=== PATIENT | female | born 1995 | race Caucasian/White ===

== ENCOUNTER 2022-08-02 22:16 | Outpatient (CLI) | payer MEDICAID, SELFPAY ==
[2022-08-02] VITALS (8 sets, daily range): BP systolic 102–127; BP diastolic 60–83; PULSE 77–93; RESP 16; TEMP 36.2; BMI 30.2
[2022-08-02 23:44] LABS: Urine Appearance Clear (CLEAR); Urine Color Yellow (Yellow)
[2022-08-02 23:45] LABS: Add Urine Culture? No; Amorphous Sediment Urine 2+ /hpf; Bilirubin Urine Neg (Negative); Blood Urine Neg (Negative); Glucose Urine UA Norm (Normal); Ketones Urine Negative (Negative); Leukocyte Esterase Urine Negative (Negative); Nitrate Urine Negative (Negative); Protein Urine Neg (Negative); Sulfosalicylic Acid Urine Negative (Negative); Urobilinogen Urine Norm (Negative); WBC Urine 0-4 /hpf (0-5); pH Urine 8 (5-7)
[2022-08-03] VITALS: BP 110/68; PULSE 86; RESP 16; TEMP 36.2
== END 2022-08-03 00:05 | disposition home or self-care (01) ==
LOC: OPOB 22:18 → OBGYN 22:19
PROVIDERS: PCP Obstetrics & Gynecology; Visit Provider Obstetrics & Gynecology
DX: O26.899 Other specified pregnancy related conditions, unspecified trimester (principal); Z3A.00 Weeks of gestation of pregnancy not specified; R52 Pain, unspecified
CPT/HCPCS: 59025; 81001; 99211

== ENCOUNTER 2022-09-28 21:40 | Outpatient (CLI) | payer MEDICAID, SELFPAY ==
[2022-09-28 21:40] VITALS: BMI 31.1
[2022-09-28 21:54] VITALS: BP 105/67; PULSE 95
[2022-09-29 00:13] VITALS: BP 105/67; PULSE 95; RESP 16; TEMP 36.8
--- NOTE | 2022-09-29 00:22 | PM.OBTRLD ---
OB L&D Triage Visit Information: Date of evaluation: 09/29/22 Comments/Additional reason(s) for visit: 27yo female at 37wk IUP c/o contractions, onset this am. Pt denies LOF or vaginal bleeding. Pt denies problems during this other than nausea. After almost 3 hrs of OBS and PO hydration pt contractions have almost totally subside and she ranks her discomfort as maybe a 2/10. Cervix soft, 1cm/50%/-3 . EFM- Cat 1. Evaluation: Baseline heart rate: 140 Variability: Moderate (11-25) monitor accelerations: Present 15x15 Cervical dilation (cm): 1 Cervical effacement (%): 50 station: -4 Vital signs: Vital Signs - 24 hr 09/28/22 21:54 09/29/22 00:13 Temperature 98.2 F Pulse Rate 95 95 Respiratory Rate 16 Blood Pressure 105/67 105/67 Final Diagnosis Final Diagnosis (1) Moderate persistent asthma: Plan: A. 37wk IUP with irreg contraction P. OBS on LF with EFM DC to home, to return if contractions return q 2-5 , LOF or vaginal bleeding or decreased FM. Keep apptmt. Stop smoking. Status: Acute Code(s): J45.40 - Moderate persistent asthma, uncomplicated Coding Level of Care Code Acute Code for Chg Fwd Diagnoses Moderate persistent asthma J45.40
== END 2022-09-29 00:10 | disposition home or self-care (01) ==
LOC: OBGYN 09-29 00:13 → OPOB 09-29 07:58 → OBGYN 09-29 08:06
PROVIDERS: PCP Obstetrics & Gynecology; Visit Provider Obstetrics & Gynecology
DX: O47.1 False labor at or after 37 completed weeks of gestation (principal); Z3A.37 37 weeks gestation of pregnancy
CPT/HCPCS: 12345; 59025; 99211; G0378; G0379

== ENCOUNTER 2022-11-28 16:15 | Inpatient (IN) | payer MEDICAID, SELFPAY ==
[2022-11-28] VITALS (26 sets, daily range): BP systolic 100–156; BP diastolic 65–91; PULSE 67–106; TEMP 36.9; O2SAT 92–99; BMI 34.3
[2022-11-28 14:49] LABS: Basophils % 0.3 %; Eosinophils # 0.1 10^3/uL (0.0-0.8); Eosinophils % 0.5 %; Hematocrit 40.6 % (37.0-47.0); Hemoglobin 13.2 g/dL (11.5-15.3); Lymphocytes # 2.1 10^3/uL (0.8-4.8); Lymphocytes % 17.4 %; Mean Corpuscular HGB Conc 32.5 g/dL (30.0-36.0); Mean Corpuscular Hemoglobin 27.4 pg (28.0-34.0); Mean Corpuscular Volume 84.2 fl (81-99); Mean Platelet Volume 10.7 fL (7.4-10.4); Monocytes # 0.6 10^3/uL (0.2-0.9); Monocytes % 4.6 %; Neutrophils # 9.23 10^3/uL (1.8-7.7); Neutrophils % 76.7 %; Nucleated Red Blood Cells % 0 %; Platelet Count 222 10^3/cmm (130-400); Red Blood Count 4.82 10^6/uL (4.1-5.3); Red Cell Distribution Width 14.7 % (12.1-15.1)
[2022-11-28] MEDS: lactated ringers 1,000 ML 999 ML IV (14:50)
[2022-11-28 15:55] LABS: Amphetamines Screen Urine Negative (Negative); Barbiturates Screen Urine Negative (Negative); Benzodiazepines Screen Urine Negative (Negative); Cocaine Screen Urine Negative (Negative); Opiate Screen Urine Negative (Negative); PCP Screen Urine Negative (Negative); THC Screen Urine Positive (Negative)
--- NOTE | 2022-11-28 16:12 | ANES.PREANE2 ---
Pre-Anesthetic Assessment Height/Weight: Height 1.83 m Pulse BP Pulse Ox 67 139/71 99 11/28/22 16:02 11/28/22 16:02 11/28/22 15:54 Epidural Familial anesthetic complications: None Was Beta Merlin taken within 24 hours: N/A Was Clonidine taken within 24 hours: N/A Social No alcohol and No tobacco Exam alert, oriented x 3, clear to auscultation bilaterally and regular rate & rhythm Airway Mallampati: Class II Dentition: full Pulmonary Asthma Anesthetic Plan ASA status: 2 Anesthesia: Regional (specify below) Risk of > 500 ml blood loss (7ml/kg in children): Yes, adequate IV access and fluids planned Medications/Allergies Home Medications Medication Instructions Recorded Confirmed Last Taken Type albuterol sulfate 90 mcg/actuation 2 puff inhalation QID PRN 06/21/22 09/29/22 Unknown Rx aerosol inhaler shortness of breath or wheezing #8.5 grams mometasone-formoterol HFA 200 2 puff inhalation BID 06/21/22 09/29/22 Unknown History mcg-5 mcg/actuation aerosol inhaler (Dulera) montelukast 10 mg tablet 10 mg PO DAILY #90 tabs 06/21/22 09/29/22 Unknown Rx Allergies Allergy/AdvReac Type Severity Reaction Status Date / Time penicillin G Allergy Mild ALGY-Rash Verified 06/21/22 11:14 Current Medications Generic Name Dose Route Start Last Admin Trade Name Freq PRN Reason Stop Dose Admin Lactated Ringer's 1,000 mls @ 999 mls/hr 11/28/22 14:18 11/28/22 14:50 Lactated Ringers IV 999 mls/hr .Q1H1M PRN Administration See label comments PFSH Anesthesia Family History (Updated 06/21/22 @ 11:07 by Angelina Mack LPN) Father Diabetes Mother Hypertension Social History (Updated 06/21/22 @ 11:08 by Angelina Mack LPN) Smoking and tobacco status: never smoked Second hand smoke exposure: No Smoking risk assessment/counseling performed?: No Alcohol intake: never Substance/Drug Use: never Adopted: No Caregiver/support person: No Lives independently: No Household members: family Marital status: Legally Number of children: 1 Female Reproductive History Para: 1 Spontaneous abortions: No Data Anesthesia 05/16/23 14:28 Short CBC 11/28/22 Range/Units 14:28 WBC 12.0 H (4.0-10.0) 10^3/uL Hgb 13.2 (11.5-15.3) g/dL Hct 40.6 (37.0-47.0) % MCV 84.2 (81-99) fl Plt Count 222 (130-400) 10^3/cmm Neut % (Auto) 76.7 % Neut # (Auto) 9.23 H (1.8-7.7) 10^3/uL Blood Bank 11/28/22 14:28 Blood Type A Positive Rho(D) Type Positive Cardiac Studies: No Data to Display
--- NOTE | 2022-11-28 16:12 | ANES.PROC ---
Anesthesia Procedures Procedure/Date: 11/28/22 Epidural: Time Out Performed: Yes Consents Signed: Procedure Consent Consent: requested by attending/covering physician, from patient, from other, risks and benefits reviewed and patient agrees to proceed Lumbar Level: L3-L4 Epidural position: sitting Epidural procedure: sterile prep of area, 1% lidocaine to numb the area, 18 g needle, negative for paresthesia passed, neg for paresthesia, test dose given, 1.5% xylocaine 1:200k epi (5), 0.2% Ropivacaine bolus ml (5), placed PCEA, no systemic response, sterile dressing applied, L.U.D. no apparent complications and 0.2% Ropiavacaine @ mls/hr (13) Additional Comments: VENUS at 6 cm, threaded to 12 cm. Patient reported pain of contraction decreased from 9/10 to 7/10 the 10. Encouraged continued use of bolus button to help initiate set up of block
--- NOTE | 2022-11-28 17:21 | PM.OBGYHP ---
Providers/Chief Complaint Admitting Physician: Magda Gaxiola DO Primary SAFETY TECH: Dr. Vazquez in [place] Primary Care Provider: Mandeep Brewer DO Chief Complaint: contractions HPI SAFETY TECH History of Present Illness Carrie Castrejon is a 27 year old female presenting for contractions. PMHx significant for asthma per patient. Denies complications in this . Reports she was scheduled for induction tomorrow in [place]. Complains of contractions starting this morning intermittently and then became more intense and began en route to hospital. Reports good care with Dr. Vazquez in [place]- records not available at this time. Medications/Allergies Home Medications Medication Instructions Recorded Confirmed Last Taken Type albuterol sulfate 90 mcg/actuation 2 puff inhalation QID PRN 06/21/22 09/29/22 Unknown Rx aerosol inhaler shortness of breath or wheezing #8.5 grams mometasone-formoterol HFA 200 2 puff inhalation BID 06/21/22 09/29/22 Unknown History mcg-5 mcg/actuation aerosol inhaler (Dulera) montelukast 10 mg tablet 10 mg PO DAILY #90 tabs 06/21/22 09/29/22 Unknown Rx Allergies Allergy/AdvReac Type Severity Reaction Status Date / Time penicillin G Allergy Mild ALGY-Rash Verified 06/21/22 11:14 PFSH SAFETY TECH PFSH: Family History (Updated 06/21/22 @ 11:07 by Angelina Mack LPN) Father Diabetes Mother Hypertension Social History (Updated 06/21/22 @ 11:08 by Angelina Mack LPN) Smoking and tobacco status: never smoked Second hand smoke exposure: No Smoking risk assessment/counseling performed?: No Alcohol intake: never Substance/Drug Use: never Adopted: No Caregiver/support person: No Lives independently: No Household members: family Marital status: Legally Number of children: 1 Personal Safety: Do you feel safe at home: Yes Victim of physical abuse: No Victim of emotional abuse: No Victim of sexual abuse: No Would you like help information on resources?: No History History History 4 Term 1 0 Miscarriages/Ectopic Living Children 1 Vitals/I&O/Wt Last Vital Signs Pulse 106 H 11/28/22 16:35 BP 138/79 11/28/22 16:35 Pulse Ox 99 11/28/22 15:54 Physical Exam Const: COMMON NORMALS: healthy appearing, alert and well nourished OTHER: discomfort with contractions Resp: COMMON NORMALS: normal respiratory effort Extremity: NARRATIVE EXTREMITY EXAM: No LE edema Psych: COMMON NORMALS: mental status grossly normal, Normal thought process present and speech normal Data 11/28/22 14:28 A&P Assessment and plan (1) Spontaneous onset of labor: Admit for labor. Request records. Routine CBC, UDS. May have epidural. Anticipate , expectant management. (2) Term : Attestations Medical Necessity Statement*: Carrie Soto Lucía's hospital stay will require greater than 2 midnights for routine labor and delivery and care Coding Level of Care Code Acute Code for Chg Fwd Diagnoses Spontaneous onset of labor Term Z34.90
--- NOTE | 2022-11-28 17:21 | PM.DELIVERY ---
Delivery Note: Date of delivery: November 28, 2022 Pre-delivery diagnoses: Term Post-delivery diagnoses: Delivery of viable female Procedure: Spontaneous Vaginal Delivery Delivering Physician: Magda Gaxiola DO Estimated blood loss (mL): 175 Pre-Delivery Course: Admitted in spontaneous labor at 40w1d. Progressed appropriately with epidural anesthesia to complete. SROM after progression to complete with thick meconium noted. Delivery: Patient progressed to complete. Patient placed in lithotomy position. Patient pushed with adequate effort. Head delivered in FRANCESCA position, tight nuchal cord was present x1- reduced without difficulty. Shoulders and rest of body delivered without difficulty with epidural anesthesia. Mouth and nares bulb suctioned. placed on maternal abdomen. Cord clamped and cut after 1 minute delay. Placenta spontaneously delivered intact. Pitocin started. Fundus was noted to be moderately firm- improved with fundal massage. The vagina and cervix were inspected and no lacerations were noted. Intermittent trickle bleed noted- uterus swept clear of clots and few pieces of retained membrane noted. Following noted to be with minimal bleeding and fundus was again noted to be firm. Female born at 1653 with 7/8 weighing 3690g and measuring 20.75 inches in length Placenta noted to be intact with centrally inserted umbilical cord and 3-vessel cord Complications: Maternal none Infant none History History History 4 Term 1 0 Miscarriages/Ectopic Living Children 1 Coding Level of Care Code Acute Code for Chg Fwd Diagnoses
[2022-11-28] MEDS: ibuprofen 800 mg tablet PO (22:08)
[2022-11-28] MEDS: docusate sodium 100 mg Capsule PO (22:08)
[2022-11-28] MEDS: benzocaine-menthol 78 gm Canister 1 SPRAY TOPICAL (22:14)
[2022-11-29 01:00] VITALS: BP 131/74; PULSE 73; TEMP 36.8; O2SAT 97
[2022-11-29 04:00] VITALS: BP 113/61; PULSE 67; RESP 16; TEMP 36.4; O2SAT 98
[2022-11-29 06:18] LABS: Hematocrit 32.6 % (37.0-47.0); Mean Corpuscular HGB Conc 30.7 g/dL (30.0-36.0); Mean Corpuscular Hemoglobin 27.9 pg (28.0-34.0); Mean Corpuscular Volume 90.8 fl (81-99); Mean Platelet Volume 11.2 fL (7.4-10.4); Platelet Count 166 10^3/cmm (130-400); Red Blood Count 3.59 10^6/uL (4.1-5.3); Red Cell Distribution Width 14.7 % (12.1-15.1); White Blood Count 12.1 10^3/uL (4.0-10.0)
[2022-11-29] MEDS: prenatal vitamin Capsule 1 CAP PO (09:21)
[2022-11-29] MEDS: ibuprofen 800 mg tablet PO ×3 (09:21→21:10)
[2022-11-29] MEDS: docusate sodium 100 mg Capsule PO (09:21)
[2022-11-29 09:26] VITALS: BP 136/89; PULSE 75; RESP 17; O2SAT 97
--- NOTE | 2022-11-29 11:11 | PM.OBGYPN ---
DIRECTOR OF FLIGHT OPERATIONS Subjective Subjective: Interval history: Doing well overnight. Denies pain. Eating and drinking without nausea/vomiting. Bleeding is decreasing and amount of a period- no clots. Ambulating without difficulty. Urinating without difficulty and passing gas. Baby is formula feeding. records not yet available for review however primary OB office has been contacted and states they have records and labs. Patient again reports normal without abnormal lab results and GBS negative status. Reports she plans for tubal ligation in 6 weeks with her primary OB and plans to follow-up with her primary OB office. Called by nursing at approx 11am and noted GBS status only had been received by record and GBS is positive per report. Labor: Station: 0 Amniotic Membrane Status: Ruptured Monitor Mode: External Contraction Pattern: Regular Status: Category II Vitals/I&O/Wt Last Vital Signs Temp 97.5 F L 11/29/22 04:00 Pulse 67 11/29/22 04:00 Resp 16 11/29/22 04:00 BP 113/61 11/29/22 04:00 Pulse Ox 98 11/29/22 04:00 O2 Del Method Room Air 11/29/22 04:00 11/28/22 11/29/22 11/29/22 22:59 06:59 14:59 Output Total 600 / 600 Balance -600 / -600 Weight last 48 hrs Weight 253 lb Physical Exam Const: COMMON NORMALS: healthy appearing, alert and well nourished Resp: COMMON NORMALS: normal respiratory effort and clear to auscultation bilaterally AUSCULTATION: clear to auscultation bilaterally Cardio: COMMON NORMALS: regular rate, regular rhythm, S1 normal heart sound present, S2 normal heart sound present and No murmurs present (Cardio) RATE: regular rate RHYTHM: regular rhythm HEART SOUNDS: S1 normal heart sound present and S2 normal heart sound present : OTHER: Uterine fundus firm and at the umbilicus Extremity: NARRATIVE EXTREMITY EXAM: No LE edema, no calf tenderness Neuro: SENSORIUM/ORIENTATION: Yes alert Psych: COMMON NORMALS: mental status grossly normal, Normal thought process present and speech normal SPEECH: Yes normal speech THOUGHT PROCESS: Normal thought process present Data 11/29/22 05:30 A&P Assessment and plan (1) Spontaneous vaginal delivery: PPD#1 s/p without complication Routine care. Encourage ambulation, may shower, regular diet. Review remainder of labs when received- normal per patient. Anticipate discharge home tomorrow. (2) Anemia: Start daily iron supplementation. (3) Positive GBS test: GBS unknown at delivery with patient report of GBS negative. Records received after delivery with GBS positive report. Did not receive GBS ppx. Attestations Medical Necessity Statement*: Carrie Castrejon's hospital stay will require greater than 2 midnights for routine labor and delivery and care Coding Level of Care Code Acute Code for Chg Fwd Diagnoses Spontaneous vaginal delivery O80 Anemia D64.9 Positive GBS test B95.1
[2022-11-29 16:00] VITALS: BP 134/84; PULSE 62; TEMP 36.4; O2SAT 100
[2022-11-29 21:09] VITALS: BP 123/82; PULSE 70; RESP 18; TEMP 37; O2SAT 99
[2022-11-30 04:54] VITALS: BP 127/86; PULSE 70; RESP 18; TEMP 36.6; O2SAT 97
[2022-11-30 07:45] VITALS: BP 116/74; PULSE 80; RESP 18; TEMP 36.7
--- NOTE | 2022-11-30 08:00 | ANE.PACU2 ---
Inpatient post-anesthesia follow up: Airway intact: Yes Vital signs: Temperature 98.1 F Pulse Rate 81 Respiratory Rate 18 Blood Pressure 128/83 Pulse Oximetry 97 Oxygen Delivery Me thod Room Air Oxygen Flow Rate Fraction of Inspir ed Oxygen Hydration adequate: Yes Nausea and vomiting: No Pain level: 1 Mental status: Baseline
--- NOTE | 2022-11-30 08:05 | PM.OBGYDC ---
Discharge Providers RETAIL ACCOUNT MANAGER Date of Admission: 11/28/22 16:15 Date of Discharge: 11/30/22 Attending Provider at Admission: Magda Gaxiola DO Attending Provider at Discharge: Magda Gaxiola DO Primary Care Provider: Mandeep Brewer DO Diagnoses at Discharge Discharge Diagnosis (1) Spontaneous vaginal delivery: Status: Acute (2) Anemia: Status: Acute (3) Positive GBS test: Status: Inactive Reason for Visit Reason for Visit: contractions Hospital Course Hospital Course Pre-Delivery Course:?? Admitted in spontaneous labor at 40w1d. Progressed appropriately with epidural anesthesia to complete. SROM after progression to complete with thick meconium noted. Delivery:?? Patient progressed to complete. Patient placed in lithotomy position. Patient pushed with adequate effort. Head delivered in FRANCESCA position, tight nuchal cord was present x1- reduced without difficulty. Shoulders and rest of body delivered without difficulty with epidural anesthesia. Mouth and nares bulb suctioned. placed on maternal abdomen. Cord clamped and cut after 1 minute delay. Placenta spontaneously delivered intact. Pitocin started. Fundus was noted to be moderately firm- improved with fundal massage. The vagina and cervix were inspected and no lacerations were noted. Intermittent trickle bleed noted- uterus swept clear of clots and few pieces of retained membrane noted. Following noted to be with minimal bleeding and fundus was again noted to be firm. Female born at 1653 with 7/8 weighing 3690g and measuring 20.75 inches in length Placenta noted to be intact with centrally inserted umbilical cord and 3-vessel cord Complications: Maternal none ? Infant none Patient underwent on 11/28/22. course was uncomplicated. Following delivery patient ambulated well, tolerated a normal diet without nausea or vomiting. Pain was well controlled on PO medications, bottle feeding formula, no leg/calf pain, no calf/leg swelling, normal urination, passing gas and normal bowel movements. Vaginal bleeding decreasing and thin lochia. labs significant for hemoglobin 10.0 from 13.2 on admission. Started on iron supplementation- discussed she may take every other day at home. control was discussed and patient prefers tubal ligation- she is to schedule with her primary OB on follow-up. Follow-up planned for 6 weeks with her primary OB- Dr. Ruggiero in [place]- patient to call for follow-up. Warning signs for endometritis, pre-eclampsia, DVT/PE, mastitis were reviewed, discussed additional warning signs including increased vaginal bleeding, worsening abdominal pain. Pelvic rest and activity precautions reviewed as well. She is discharged on 11/30/22 in stable condition. Information Peripartum Data: Infant Delivery Method: Vaginal Physical Exam Const: COMMON NORMALS: healthy appearing, alert and well nourished Resp: COMMON NORMALS: normal respiratory effort and clear to auscultation bilaterally AUSCULTATION: clear to auscultation bilaterally Cardio: COMMON NORMALS: regular rate, regular rhythm, S1 normal heart sound present, S2 normal heart sound present and No murmurs present (Cardio) RATE: regular rate RHYTHM: regular rhythm HEART SOUNDS: S1 normal heart sound present and S2 normal heart sound present : OTHER: Uterine fundus firm and at the umbilicus Extremity: NARRATIVE EXTREMITY EXAM: No LE edema, no calf tenderness Neuro: SENSORIUM/ORIENTATION: Yes alert Psych: COMMON NORMALS: mental status grossly normal, Normal thought process present and speech normal SPEECH: Yes normal speech THOUGHT PROCESS: Normal thought process present History History History 4 Term 2 0 Miscarriages/Ectopic Living Children 2 Discharge Data Studies Completed and Pending Laboratory Results WBC 12.1 10^3/uL (4.0-10.0) H 11/29/22 05:30 RBC 3.59 10^6/uL (4.1-5.3) L 11/29/22 05:30 Hgb 10.0 g/dL (11.5-15.3) L 11/29/22 05:30 Hct 32.6 % (37.0-47.0) L 11/29/22 05:30 MCV 90.8 fl (81-99) D 11/29/22 05:30 MCH 27.9 pg (28.0-34.0) L 11/29/22 05:30 MCHC 30.7 g/dL (30.0-36.0) D 11/29/22 05:30 RDW 14.7 % (12.1-15.1) 11/29/22 05:30 Plt Count 166 10^3/cmm (130-400) 11/29/22 05:30 MPV 11.2 fL (7.4-10.4) H 11/29/22 05:30 Neut % (Auto) 76.7 % 11/28/22 14:28 Lymph % (Auto) 17.4 % 11/28/22 14:28 [place] % (Auto) 4.6 % 11/28/22 14:28 Eos % (Auto) 0.5 % 11/28/22 14:28 Baso % (Auto) 0.3 % 11/28/22 14:28 Neut # (Auto) 9.23 10^3/uL (1.8-7.7) H 11/28/22 14:28 Lymph # (Auto) 2.1 10^3/uL (0.8-4.8) 11/28/22 14:28 [place] # (Auto) 0.6 10^3/uL (0.2-0.9) 11/28/22 14: Eos # (Auto) 0.1 10^3/uL (0.0-0.8) 11/28/22 14:28 Baso # (Auto) 0.0 10^3/uL (0.0-0.1) 11/28/22 14: Nucleated RBC % (auto) 0 % 11/28/22 14: Nucleated RBCs # 0.0 /100WBC 11/28/22 14:28 Urine Opiates Screen Negative ng/mL (Negative) 11/28/22 15:27 Ur Barbiturates Screen Negative ng/mL (Negative) 11/28/22 15:27 Ur Phencyclidine Scrn Negative ng/mL (Negative) 11/28/22 15:27 Ur Amphetamines Screen Negative ng/mL (Negative) 11/28/22 15:27 U Benzodiazepines Scrn Negative ng/mL (Negative) 11/28/22 15:27 Urine Cocaine Screen Negative ng/mL (Negative) 11/28/22 15:27 U Marijuana (THC) Screen Positive ng/mL (Negative) H 11/28/22 15:27 Blood Type A Positive 11/28/22 14:28 Rho(D) Type Positive 11/28/22 14:28 Vitals Last Vital Signs Temp 97.8 F 11/30/22 04:54 Pulse 70 11/30/22 04:54 Resp 18 11/30/22 04:54 BP 127/86 11/30/22 04:54 Pulse Ox 97 11/30/22 04:54 O2 Del Method Room Air 11/30/22 04:54 Discharge Plan Discharge Patient Disposition: Home Condition: Stable Prescriptions: New ibuprofen 800 mg Tablet 800 mg PO TID Qty: 90 0RF docusate sodium 100 mg Capsule 100 mg PO BID Qty: 60 0RF ferrous sulfate 325 mg (65 mg iron) Tablet,Delayed Release (Dr/Ec) 325 mg PO EVERY OTHER DAY Qty: 45 0RF -U 106.5-1 mg Capsule 1 cap PO DAILY Qty: 90 0RF Continued Dulera 200-5 mcg/actuation HFA aerosol inhaler 2 puff inhalation BID albuterol sulfate 90 mcg/actuation HFA aerosol inhaler 2 puff inhalation QID PRN (Reason: shortness of breath or wheezing) Qty: 8.5 5RF montelukast 10 mg tablet 10 mg PO DAILY Qty: 90 2RF Discharge Orders: Discharge Order (Routine); Ordered 11/30/22 Ordered By: Magda Gaxiola Referrals: Angela Ruggiero [Referring] - 01/10/23 1:00 pm Discharge Diet: Usual diet Discharge Activity: Increase activity as tolerated Patient Instructions: Depression (DC), Bleeding (DC), Preeclampsia and Eclampsia After Delivery (GEN), Hemorrhage (DC), OB Discharge Report, OB Food/Drug Interaction Guide, OB Care at Home, Opioid Safety, OB Home Care, OB Proud Parent Packet, OB Vaginal Deliveries Activity Restrictions/Additional Instructions: Pelvic rest for 6 weeks. Plan of Treatment: Follow-up with primary OB Dr. Ruggiero in 6 weeks. Discharge Attestations RETAIL ACCOUNT MANAGER Time Spent in Discharge Care*: greater than 30 min Coding Level of Care Code Acute Code for Chg Fwd Diagnoses Spontaneous vaginal delivery O80 Anemia D64.9 Positive GBS test B95.1
[2022-11-30] MEDS: ibuprofen 800 mg tablet PO ×2 (09:27→15:38)
[2022-11-30] MEDS: ferrous sulfate EC 325 mg Tablet PO (09:28)
[2022-11-30] MEDS: prenatal vitamin Capsule 1 CAP PO (09:28)
[2022-11-30] MEDS: docusate sodium 100 mg Capsule PO (09:28)
[2022-11-30 15:40] VITALS: BP 123/79; PULSE 75; RESP 18; TEMP 36.8
[2022-11-30 17:15] VITALS: BP 128/83; PULSE 81; RESP 18; TEMP 36.7
[2022-11-30 17:25] VITALS: BP 128/83; PULSE 81; RESP 18; TEMP 36.7
== END 2022-11-30 17:25 | disposition home or self-care (01) | DRG 807 ==
LOC: OPOB 17:22 → OBGYN 17:22
PROVIDERS: Admitting Provider Family Medicine; PCP Family Medicine; Visit Provider Family Medicine
DX: O48.0 Post-term pregnancy (principal); Z37.0 Single live birth; O99.52 Diseases of the respiratory system complicating childbirth; Z3A.40 40 weeks gestation of pregnancy; J45.909 Unspecified asthma, uncomplicated; O77.0 Labor and delivery complicated by meconium in amniotic fluid; O69.1XX0 Labor and delivery complicated by cord around neck, with compression, not applicable or unspecified; O90.81 Anemia of the puerperium; D64.9 Anemia, unspecified; O99.825 Streptococcus B carrier state complicating the puerperium
CPT/HCPCS: 36415; 59025; 59409; 80306; 85025; 85027; 86900; 99211; J7120

== ENCOUNTER → 2023-08-07 14:06 | Outpatient (BNVA) | payer MEDICAID, SELFPAY | PROVIDERS: PCP Family Medicine; Visit Provider Nurse Practitioner Family | DX: R05.9 Cough, unspecified (principal); J06.9 Acute upper respiratory infection, unspecified | CPT/HCPCS: 87400; 87426 ==

== ENCOUNTER 2023-10-30 13:24 | Emergency (ER) | payer MEDICAID, SELFPAY ==
[2023-10-30] VITALS (27 sets, daily range): BP systolic 102–154; BP diastolic 78–97; PULSE 66–98; RESP 13–33; TEMP 36.8; O2SAT 95–100; BMI 32.5
--- NOTE | 2023-10-30 13:26 | XR_ITS ---
WS: [id number] Exam: XR chest 1V portable [id number] Date/Time of Exam: 10/30/2023 1:37 PM Reason For Exam: palpitations Comparison 03/19/2019. Findings: The lungs are clear and fully expanded. Costophrenic angles are sharp. No infiltrates. Bronchovascula r relief appears normal. Cardiac silhouette is unremarkable. Bony elements are intact. IMPRESSION: Unremarkable chest radiograph.
--- NOTE | 2023-10-30 13:33 | ECG_ITS ---
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 Measurements Intervals [place] Rate: 74 P: 33 MN: 159 QRS: 33 QRSD: 98 T: 31 QT: 376 QTc: 418 Interpretive Statements SINUS RHYTHM No previous ECG available for comparison Electronically Signed On 10-30-2023 17:39:18 CDT by Blair Hooper M.D. [email or web address]
[2023-10-30 14:06] LABS: Basophils # 0.1 10^3/uL (0.0-0.1); Basophils % 0.9 %; Eosinophils # 0.9 10^3/uL (0.0-0.8); Eosinophils % 9.1 %; Hematocrit 41.2 % (36-47); Lymphocytes # 2.8 10^3/uL (0.8-4.8); Lymphocytes % 28.3 %; Mean Corpuscular HGB Conc 33.5 g/dL (30-55); Mean Corpuscular Hemoglobin 27.8 pg (27-33); Mean Corpuscular Volume 82.9 fl (85-98); Mean Platelet Volume 9.9 fL (7.4-10.4); Monocytes # 0.4 10^3/uL (0.2-0.9); Monocytes % 4.2 %; Neutrophils # 5.71 10^3/uL (1.8-7.7); Neutrophils % 57.2 %; Nucleated Red Blood Cells % 0 %; Platelet Count 307 10^3/cmm (157-399); Red Blood Count 4.97 10^6/uL (3.85-5.65); Red Cell Distribution Width 13.2 % (12.1-15.1); White Blood Count 9.99 10^3/uL (3.29-11.43)
[2023-10-30 14:06] LABS: HCG Qualitative Urine. Negative (Negative)
[2023-10-30 14:09] LABS: Amphetamines Screen Urine Negative (Negative); Barbiturates Screen Urine Negative (Negative); Benzodiazepines Screen Urine Negative (Negative); Cocaine Screen Urine Negative (Negative); Opiate Screen Urine Negative (Negative); PCP Screen Urine Negative (Negative); THC Screen Urine Positive (Negative)
[2023-10-30 14:25] LABS: Alanine Aminotransferase 42 U/L (0-33); Alkaline Phosphatase 77 U/L (35-105); Anion Gap 14.9 (5-19); Aspartate Amino Transferase 26 U/L (0-32); Blood Urea Nitrogen 9 mg/dL (6-20); Calcium 8.8 mg/dL (8.5-10.5); Carbon Dioxide 24 mmol/L (22-29); Chloride 104 mmol/L (98-107); Creatinine Clr Calc Pharmacy 196.0538; Globulin 3.2 g/dL (1.3-4.6); Glomerular Filtration Rate 120.8 mL/min (90-130); Glucose 93 mg/dL (65-115); Magnesium 1.9 mg/dL (1.7-2.3); Osmolality Calculated 286 mOsm/kg (285-295); Potassium 3.9 mmol/L (3.5-5.1); Sodium 139 mmol/L (136-145); Total Bilirubin 0.3 mg/dL (0.15-1.2); Total Protein 7.2 g/dL (6.6-8.7); Troponin(5th) Baseline < 6 ng/L (0-10)
[2023-10-30 14:32] LABS: Add Urine Culture? No; Add Urine Microscopic? YES; Amorphous Sediment Urine 2+ /hpf; Bacteria Urine TRACE /hpf; Bilirubin Urine Neg (Negative); Blood Urine Neg (Negative); Glucose Urine UA Norm (Normal); Ketones Urine 1+ (Negative); Leukocyte Esterase Urine 2+ (Negative); Nitrate Urine Negative (Negative); Protein Urine Neg (Negative); RBC Urine RARE /hpf (0-2); Squamous Epithelial Cell Urine 15-25 /hpf (0-5); Urine Appearance Hazy (CLEAR); Urine Color Yellow (Yellow); Urobilinogen Urine Neg (Negative); WBC Urine 0-4 /hpf (0-5); pH Urine 6 (5-7)
--- NOTE | 2023-10-30 14:35 | ED_ITS ---
HPI - Arrhythmia/Palpitations 2 General: Chief Complaint: Arrhythmia/Palpitations Stated Complaint: Fluttery Chest Time Seen by Provider: 10/30/23 13:26 History of Present Illness: Patient presents to the ER with complaint of heart flutters and high blood pressure. Patient states she was sitting at work eating her lunch when she began having chest flutters heart rate got up to about 110 bpm and left arm became tingly. Patient says she has no cardiac history other than high blood pressure but she is not on any medicine for it at this time. Patient does have a history of anxiety but this is been getting better. Patient has no current complaints. Patient denies any nausea vomiting shortness of breath diaphoresis Review of Systems 2 General: Reports: 10 or more systems reviewed and unremarkable except in HPI and below PFSH ED 2 PFSH: Medical History Positive GBS test Family History Father Diabetes Mother Hypertension Social History Smoking and tobacco/nicotine status: never used tobacco/nicotine Second hand smoke exposure: No Alcohol intake: never Substance/Drug Use: never Adopted: No Caregiver/support person: No Lives independently: No Household members: family Marital status: Legally Number of children: 1 Female Reproductive History: Para: 1 Spontaneous abortions: No Physical Exam 2 Const: COMMON NORMALS: no acute distress, average body habitus, patient oriented x3, no limitations, healthy appearing, alert and well nourished HENMT: COMMON NORMALS: normocephalic, atraumatic, hearing grossly normal bilaterally, external ears normal, Normal external nose present, moist oral mucous membranes and oropharynx normal HEAD & SCALP: normocephalic and atraumatic NOSE: Normal external nose present EXTERNAL EAR: Yes external ears normal Neck/C-Spine: COMMON NORMALS: full ROM, no lymphadenopathy, supple, no meningeal signs, no JVD and Thyroid normal THYROID: Thyroid normal Chest: COMMONS NORMALS: normal inspection of the chest and normal palpation of entire chest wall Resp: COMMON NORMALS: normal respiratory effort, No retractions, No use of accessory muscles and clear to auscultation bilaterally AUSCULTATION: clear to auscultation bilaterally Cardio: COMMON NORMALS: no JVD, regular rate, regular rhythm, S1 normal heart sound present, S2 normal heart sound present, No gallops present (Cardio), No clicks present (Cardio), No murmurs present (Cardio) and No rub (Cardio) R ATE: regular rate RHYTHM: regular rhythm HEART SOUNDS: S1 normal heart sound present and S2 normal heart sound present GI: COMMON NORMALS: Normal to inspection, nondistended, normoactive bowel sounds present, Soft to palpation, non-tender, No hepatosplenomegaly present and no masses PALPATION: Yes Soft to palpation and Yes No hepatosplenomegaly present Neuro: COMMON NORMALS: patient oriented x3 SENSORIUM/ORIENTATION: Yes alert MENINGEAL SIGNS: Yes no meningeal signs Course 2 Vital Signs: Vital signs: Vital Signs Temperature 98.2 F 10/30/23 13:25 Pulse Rate 69 10/30/23 16:45 Respiratory Rate 27 H 10/30/23 16:45 Blood Pressure 130/86 10/30/23 16:45 Pulse Oximetry 95 10/30/23 16:45 Oxygen Delivery Me thod Room Air 10/30/23 13:38 MDM - Arrhythmia/Palpitations Medical Decision Making Patient was worked up in a standard cardiac fashion with serial EKGs and lab work, all of it was essentially benign for cardiac causes of palpitations. Patient does have 2+ leukocyte Estrace. Patient be treated for urinary tract infection. Differential Diagnosis Likely palpitations and sinus tachycardia; Unlikely anxiety, artial fibrillation, artial flutter, ventricular premature beats, supraventricular tachycardia, ventricular tachycardia or WPW Medical Records I reviewed the patient's medical records. Lab Data I reviewed the patient's lab results. 10/30/23 13:52 10/30/23 13:52 Laboratory Results WBC 9.99 10^3/uL (3.29-11.43) 10/30/23 13:52 RBC 4.97 10^6/uL (3.85-5.65) 10/30/23 13:52 Hgb 13.80 g/dL (11.27-16.99) 10/30/23 13:52 Hct 41.2 % (36-47) 10/30/23 13:52 MCV 82.9 fl (85-98) L 10/30/23 13:52 MCH 27.8 pg (27-33) 10/30/23 13:52 MCHC 33.5 g/dL (30-55) 10/30/23 13:52 RDW 13.2 % (12.1-15.1) 10/30/23 13:52 Plt Count 307 10^3/cmm (157-399) 10/30/23 13:52 MPV 9.9 fL (7.4-10.4) 10/30/23 13:52 Neut % (Auto) 57.2 % 10/30/23 13:52 Lymph % (Auto) 28.3 % 10/30/23 13:52 [place] % (Auto) 4.2 % 10/30/23 13:52 Eos % (Auto) 9.1 % 10/30/23 13:52 Baso % (Auto) 0.9 % 10/30/23 13:52 Neut # (Auto) 5.71 10^3/uL (1.8-7.7) 10/30/23 13:52 Lymph # (Auto) 2.8 10^3/uL (0.8-4.8) 10/30/23 13:52 [place] # (Auto) 0.4 10^3/uL (0.2-0.9) 10/30/23 13:52 Eos # (Auto) 0.9 10^3/uL (0.0-0.8) H 10/30/23 13:52 Baso # (Auto) 0.1 10^3/uL (0.0-0.1) 10/30/23 13:52 Nucleated RBC % (auto) 0 % 10/30/23 13:52 Nucleated RBCs # 0.0 /100WBC 10/30/23 13:52 Sodium 139 mmol/L (136-145) 10/30/23 13:52 Potassium 3.9 mmol/L (3.5-5.1) 10/30/23 13:52 Chloride 104 mmol/L (98-107) 10/30/23 13:52 Carbon Dioxide 24 mmol/L (22-29) 10/30/23 13:52 Anion Gap 14.9 (5-19) 10/30/23 13:52 BUN 9 mg/dL (6-20) 10/30/23 13:52 Creatinine 0.6 mg/dL (0.5-0.9) 10/30/23 13:52 GFR Calculation 120.8 mL/min (90-130) 10/30/23 13:52 Glucose 93 mg/dL (65-115) 10/30/23 13:52 Calculated Osmolality 286 mOsm/kg (285-295) 10/30/23 13:52 Calcium 8.8 mg/dL (8.5-10.5) 10/30/23 13:52 Magnesium 1.9 mg/dL (1.7-2.3) 10/30/23 13:52 Total Bilirubin 0.3 mg/dL (0.15-1.2) 10/30/23 13:52 AST 26 U/L (0-32) 10/30/23 13:52 ALT 42 U/L (0-33) H 10/30/23 13:52 Alkaline Phosphatase 77 U/L (35-105) 10/30/23 13:52 Troponin T Baseline < 6 ng/L (0-10) 10/30/23 13:52 Troponin T 120 Minute 6.00 ng/L (0-10) 10/30/23 15:55 Delta Troponin T 0.77624 ABS# (0-10) 10/30/23 15:55 Total Protein 7.2 g/dL (6.6-8.7) 10/30/23 13:52 Albumin 4.0 g/dL (3.5-5.2) 10/30/23 13:52 Globulin 3.2 g/dL (1.3-4.6) 10/30/23 13:52 HCG, Qual Negative (Negative) 10/30/23 13:48 Urine Color Yellow (Yellow) 10/30/23 13:48 Urine Appearance Hazy (CLEAR) A 10/30/23 13:48 Urine pH 6 (5-7) 10/30/23 13:48 Ur Specific [place] 1.020 (1.005-1.030) 10/30/23 13:48 Urine Protein Neg (Negative) 10/30/23 13:48 Urine Glucose (UA) Norm (Normal) 10/30/23 13:48 Urine Ketones 1+ (Negative) H 10/30/23 13:48 Urine Blood Neg (Negative) 10/30/23 13:48 Urine Nitrate Negative (Negative) 10/30/23 13:48 Urine Bilirubin Neg (Negative) 10/30/23 13:48 Urine Urobilinogen Neg mg/dL (Negative) 10/30/23 13:48 Ur Leukocyte Esterase 2+ (Negative) H 10/30/23 13:48 Urine RBC Rare /hpf (0-2) 10/30/23 13:48 Urine WBC 0-4 /hpf (0-5) H 10/30/23 13:48 Ur Squamous Epith Cells 15-25 /hpf (0-5) H 10/30/23 13:48 Amorphous Sediment 2+ /hpf 10/30/23 13:48 Urine Bacteria Trace /hpf (NONE) 10/30/23 13:48 Urine Opiates Screen Negative ng/mL (Negative) 10/30/23 13:48 Ur Barbiturates Screen Negative ng/mL (Negative) 10/30/23 13:48 Ur Phencyclidine Scrn Negative ng/mL (Negative) 10/30/23 13:48 Ur Amphetamines Screen Negative ng/mL (Negative) 10/30/23 13:48 U Benzodiazepines Scrn Negative ng/mL (Negative) 10/30/23 13:48 Urine Cocaine Screen Negative ng/mL (Negative) 10/30/23 13:48 U Marijuana (THC) Screen Positive ng/mL (Negative) H 10/30/23 13:48 All radiology interpretation(s) finalized by discharge EKG Data EKG 1: I personally reviewed and interpreted this EKG as follows: EKG interpretation date: 10/30/23 EKG interpretation time: 13:33 Interpretation: Ventricular rate 74 bpm, MA interval 159, QRS duration 98, QTc of 403, sinus rhythm EKG 2: I personally reviewed and interpreted this EKG as follows: EKG interpretation date: 10/30/23 EKG interpretation time: 14:54 Prior EKG tracings: available for review Interpretation: Ventricular rate 65 bpm, MA interval 154, QRS duration 113, QTc of 410, sinus rhythm Discharge Plan Discharge Patient Disposition: Home Clinical Impression: Palpitations Urinary tract infection Qualifiers: Urinary tract infection type: acute cystitis Hematuria presence: without hematuria Qualified Code(s): N30.00 - Acute cystitis without hematuria Condition: Stable Prescriptions: New ciprofloxacin HCl 500 mg tablet 500 mg PO Q12H Qty: 20 0RF No Action Dulera 200-5 mcg/actuation HFA aerosol inhaler 2 puff inhalation BID Spiriva Respimat 1.25 mcg/actuation mist 2 puff inhalation QAM montelukast 10 mg tablet 10 mg PO QAM Ventolin HFA 90 mcg/actuation HFA aerosol inhaler 2 puff inhalation QID PRN (Reason: Shortness Of Breath Or Wheezing) Discharge Orders: Discharge ED (Routine); Ordered 10/30/23 Ordered By: Gerson Morales Referrals: Magda Gaxiola DO [Primary Care Provider] - Patient Instructions: Heart Palpitations, Urinary Tract Infection in Women (ED) Activity Restrictions/Additional Instructions: Your evaluation in ER showed you have a urinary tract infection. There were no cardiac causes for your palpitations noted. Please take all your antibiotics as directed. Please follow-up with your family practice physician within neck 7 to 10 days for further evaluation and treatment as needed. Coding Level of Care Code ED Mail Superintendent for Benjie Barron
--- NOTE | 2023-10-30 14:54 | ECG_ITS ---
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 Measurements Intervals [place] Rate: 65 P: 18 AR: 154 QRS: 41 QRSD: 113 T: 29 QT: 398 QTc: 417 Interpretive Statements SINUS RHYTHM MODERATE INTRAVENTRICULAR CONDUCTION DELAY [110+ ms QRS DURATION] Compared to ECG 10/30/2023 13:33:42 Intraventricular conduction delay now present Electronically Signed On 10-30-2023 17:39:56 CDT by Blair Hooper M.D. [id number]
[2023-10-30 16:21] LABS: Troponin 5 2HR Delta 0.00001 ABS# (0-10)
--- NOTE | 2023-10-30 19:26 | ECG_ITS ---
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 Measurements Intervals [place] Rate: 66 P: 20 [place]: 154 QRS: 50 QRSD: 93 T: 31 QT: 399 QTc: 419 Interpretive Statements SINUS RHYTHM Compared to ECG 10/30/2023 14:54:00 Intraventricular conduction delay no longer present Electronically Signed On 10-30-2023 17:39:40 CDT by Blair Hooper M.D. [email or web address] general [email or web address] [email or web address] geauga medical [email or web address]/[id number]
== END 2023-10-30 17:26 | disposition home or self-care (01) ==
PROVIDERS: Emergency Provider Emergency Medicine; PCP Family Medicine
DX: R00.2 Palpitations (principal); N30.00 Acute cystitis without hematuria
CPT/HCPCS: 36415; 71045; 80053; 80306; 81001; 81025; 83735; 84484; 85025; 93005; 99285

== ENCOUNTER 2023-11-27 15:36 | Outpatient (CLI) | payer MEDICAID, SELFPAY ==
--- NOTE | 2023-11-27 15:44 | XRR_ITS ---
PROCEDURE INFORMATION: Exam: XR Left Knee Exam date and time: 11/27/2023 3:48 PM Age: 28 years old Clinical indication: Injury or trauma; Fall; Blunt trauma; Knee; Left; Injury details: Fell into a hole in garden; Additional info: Left knee pain TECHNIQUE: Imaging protocol: Radiologic exam of the left knee. Views: 4 or more views. COMPARISON: No relevant prior studies available. FINDINGS: Bones/joints: No significant pathology. No acute fracture or dislocation. Soft tissues: Normal. No joint effusion evident. XR/XR knee LT 4V [id number] IMPRESSION: No significant pathology.
== END 2023-11-27 15:37 | disposition home or self-care (01) ==
LOC: RAD 15:38
PROVIDERS: PCP Family Medicine; Visit Provider Nurse Practitioner Family
DX: M25.562 Pain in left knee (principal)
CPT/HCPCS: 73564

== ENCOUNTER 2023-12-21 15:11 | Outpatient (CLI) | payer MEDICAID, SELFPAY ==
--- NOTE | 2023-12-21 15:36 | IR_ITS ---
WS: [id number] LEFT KNEE ARTHROGRAM Fluoroscopic guided left knee arthrogram. CLINICAL INFORMATION: LT KNEE PAIN M25.562 COMPARISON: None. TECHNIQUE: The procedure including risks, benefits, and complications were discussed with the patient , who agreed to proceed. Timeout was performed. Using sterile technique, the patient was prepped and draped in the usual sterile fashion. After 1% lidocaine injection using fluoroscopic guidance, a 22-g auge spinal needle was advanced into the left patellofemoral compartment. Subsequently 40 cc of a mix ture containing 5 cc 1% lidocaine, 20 cc normal saline, 20 cc Omnipaque 300, was administered. No im mediate complications. FLUOROSCOPY TIME: 1min [id number] # of spot films: 4 IR/[place] [id number] IMPRESSION: Uncomplicated left knee fluoroscopic guided arthrogram. CT to follow.
--- NOTE | 2023-12-21 15:45 | CT_ITS ---
WS: [id number] LEFT KNEE CT ARTHROGRAM INDICATION: LEFT knee pain TECHNIQUE: CT of the LEFT knee after intra-articular administration of contrast FINDINGS: No acute fractures. Lateral subluxation of the patella from the trochlear groove some of wh ich may be due to positioning. Recommend correlation for patellar instability. Near full-thickness sm all cartilage defect involving the medial patella facet. Patella is otherwise normal in appearance. M edial and lateral patellar retinaculum appear intact. ACL and PCL appear intact. Normal tibial plateau. Medial and lateral meniscus are normal in appearanc e. No acute appearing meniscal tears. Medial and lateral collateral ligaments appear intact. Normal p opliteal fossa. No other acute findings. CT/CT lower leg LT w con [id number] IMPRESSION: 1. Lateral subluxation of the patella in the trochlear groove. Recommend corre lation for patellar instability. 2. Small full-thickness cartilage defect in the medial patellar facet. 3. ACL and PCL appear intact. 4. No acute appearing meniscal tears.
[2023-12-21] MEDS: iohexol 350 mg/mL 100 mL Btl 20 ML IV (16:34)
== END 2023-12-21 15:12 | disposition home or self-care (01) ==
LOC: RAD 15:11
PROVIDERS: PCP Family Medicine; Visit Provider Nurse Practitioner Family
DX: M24.10 Other articular cartilage disorders, unspecified site (principal)
CPT/HCPCS: 27369; 73701; 77002; Q9967

== ENCOUNTER → 2024-04-01 10:38 | Outpatient (BNVA) | payer MEDICAID, SELFPAY | PROVIDERS: PCP Family Medicine | DX: R11.2 Nausea with vomiting, unspecified (principal); R19.7 Diarrhea, unspecified | CPT/HCPCS: 87400; 87426 ==

== ENCOUNTER 2024-09-05 15:20 | Outpatient (CLI) | payer MEDICAID, SELFPAY ==
--- NOTE | 2024-09-05 15:15 | MR_ITS ---
WS: [id number] MRI LEFT KNEE NONCONTRAST TECHNIQUE: Axial PD, coronal PD fat sat, coronal PD, sagittal PD, and sagittal PD fat-sat images obtained. CLINICAL INFORMATION: left knee pain and instability COMPARISON: CT arthrogram 12/21/2023 FINDINGS: Distal quadriceps and patella tendons are intact. Normal ACL and PCL. Normal bone marrow signal in the femoral condyles and tibial plateau. Moderate chondromalacia patella worse involving the lateral patella facet. Small amount of cartilage fissuring. Lateral subluxation of the patella in the trochlear groove similar to the prior CT. Medial and lateral patellar retinaculum appear intact. Chondral fissuring in the medial patella facet better seen on the prior arthrogram likely due to slice thickness. Medial and lateral meniscus are normal in appearance. No acute appearing meniscal tears. Normal popliteal fossa. Medial and lateral collateral ligaments appear intact. Normal popliteus. Normal bone marrow signal in the femoral condyles and tibial plateau. MR/MR knee LT wo con* [id number] IMPRESSION: 1. Normal ACL and PCL. 2. Lateral subluxation of the patella in the trochlear groove similar to the p rior CT arthrogram. Medial and lateral patellar retinaculum appear intact. Nagi mmend correlation for patellar instability. 3. Grade 2-3 chondromalacia patella worse in the lateral patella facet. Chondr al fissuring in the medial patella facet better visualized on the prior arthrog harvey likely due to slice thickness. 4. Normal popliteal fossa. 5. No acute appearing meniscal tears. Outbridge grading: grade III: partial-thickness cartilage loss with focal ulcer ation
== END 2024-09-05 15:21 | disposition home or self-care (01) ==
PROVIDERS: PCP Family Medicine; Visit Provider Nurse Practitioner
DX: M17.12 Unilateral primary osteoarthritis, left knee (principal); M25.362 Other instability, left knee
CPT/HCPCS: 73721

== ENCOUNTER 2024-11-04 10:00 | Day surgery (SDC) | payer MEDICAID, SELFPAY ==
[2024-11-04] VITALS (9 sets, daily range): BP systolic 119–139; BP diastolic 67–92; PULSE 68–92; RESP 14–19; TEMP 36.4–36.6; O2SAT 91–99; BMI 33.9
[2024-11-04 10:19] LABS: OR HCG Qualitative Urine Negative (Negative)
--- NOTE | 2024-11-04 10:33 | ANES.PREANE2 ---
Pre-Anesthetic Assessment Height/Weight: Height 6 ft Weight 250 lb Temp Pulse Resp BP Pulse Ox O2 Del Method 97.6 F 82 18 139/80 97 Room Air 11/04/24 10:27 11/04/24 10:27 11/04/24 10:27 11/04/24 10:27 11/04/24 10:27 11/04/24 10:27 Preop Diagnosis: Patellofemoral arthritis Operation Date: 11/04/24 11:35 Proposed Procedures p Knee Arthroscopy Knee Arthroscopy w/ Debridement(Left) - Ginna Bernardo MD s Chondroplasty of Patella(Left) - Ginna Bernardo MD Was Beta Merlin taken within 24 hours: N/A Was Clonidine taken within 24 hours: N/A Social No alcohol and No tobacco Exam alert, oriented x 3, clear to auscultation bilaterally and regular rate & rhythm Airway Submandibular: within normal limits Cervical ROM: within normal limits Mallampati: Class I Dentition: full Anesthetic Plan ASA status: 2 Anesthesia: General Other: No prior issues with anesthesia NPO since yesterday evening Quit smoking 4 years ago History of asthma, controlled with inhalers test negative today METs greater than 4 Plan for general anesthesia Medications/Allergies Home Medications ?Medication ?Instructions ?Recorded ?Confirmed ?Last Taken ?Type mometasone-formoterol HFA 200 2 puff inhalation BID 06/21/22 11/03/24 11/03/24 History mcg-5 mcg/actuation aerosol inhaler (Dulera) tiotropium bromide 1.25 2 puff inhalation QAM 08/07/23 11/03/24 11/04/24 History mcg/actuation mist for inhalation (Spiriva Respimat) albuterol sulfate 90 mcg/actuation 2 puff inhalation QID PRN 10/30/23 11/03/24 11/04/24 History aerosol inhaler (Ventolin HFA) Shortness Of Breath Or Wheezing montelukast 10 mg tablet 10 mg PO QAM 10/30/23 11/03/24 11/04/24 History hinged knee brace #1 ea 01/23/24 10/30/24 Unknown Rx meloxicam 7.5 mg tablet 7.5 mg PO DAILY #90 tabs 08/28/24 11/03/24 11/03/24 Rx ondansetron 4 mg disintegrating 4 mg PO Q6H PRN nausea and 10/30/24 11/03/24 Unknown Rx tablet vomiting #12 tabs sertraline 25 mg tablet 25 mg PO DAILY 11/03/24 11/03/24 11/02/24 History Allergies Allergy/AdvReac Type Severity Reaction Status Date / Time penicillin G Allergy Mild ALGY-Rash Verified 10/30/24 09:48 latex Allergy ALGY-Rash Verified 10/30/24 09:48 PFS Anesthesia Medical History Chondromalacia of left patella Patellofemoral arthritis of left knee Patellar instability of left knee Positive GBS test Family History Father Diabetes Mother Hypertension Social History Smoking and tobacco/nicotine status: never used tobacco/nicotine Second hand smoke exposure: No Alcohol intake: never Substance/Drug Use: never Adopted: No Caregiver/support person: No Lives independently: No Household members: family Marital status: Legally Number of children: 1 Female Reproductive History Para: 1 Spontaneous abortions: No Data Anesthesia Cardiac Studies: Holter Monitor 11/20/23
--- NOTE | 2024-11-04 10:49 | P.HPUD_ITS ---
Surgery/Procedure H&P Update DATE OF PROCEDURE: November 04, 2024 DATE H&P PERFORMED: 10/24/24 H&P UPDATE INFORMATION: I have reviewed H&P completed within last 30 days, I have examined patient prior to procedure, No changes to prior documentation, H&P is in [facility] EMR on date indicated and Risks and benefits of the procedure reviewed PREOP DIAGNOSIS: Patellofemoral arthritis PLANNED PROCEDURE: Operation Date: 11/04/24 11:35 Proposed Procedures p Knee Arthroscopy Knee Arthroscopy w/ Debridement(Left) - Ginna Bernardo MD s Chondroplasty of Patella(Left) - Ginna Bernardo MD Related Problem List Diagnoses (1) Chondromalacia of left patella: (2) Patellofemoral arthritis of left knee: (3) Patellar instability of left knee:
[2024-11-04] MEDS: acetaminophen 1,000 MG/100 ML PIGGYBACK 400 MG IV (10:54)
[2024-11-04] MEDS: CELEcoxib 200 mg Capsule 400 MG PO (10:55)
[2024-11-04] MEDS: gabapentin 300 mg Capsule PO (10:55)
[2024-11-04] MEDS: sodium chloride 0.9% 1,000 ML 30 ML IV (11:18)
[2024-11-04] MEDS: clindamycin 600 MG/50 ML PREMIX 100 MG IV (11:20)
[2024-11-04] MEDS: ROPivacaine 0.5% SDV 30 mL 150 MG INJECTION (12:00)
[2024-11-04] MEDS: morphine 4 mg/mL SDV 1 mL 8 MG XX (12:00)
--- NOTE | 2024-11-04 13:04 | P.OP_ITS ---
Operative Report Date of procedure: November 04, 2024 Pre-op diagnosis: Left knee patellofemoral chondromalacia Post-op diagnosis: Left knee medial and lateral meniscal tears with chondromalacia patella Post-op findings: Medial and lateral meniscal tears, degenerative, with chondromalacia patella Procedure done: Left arthroscopic knee surgery with partial medial and lateral meniscectomies and debridement of synovium with chondroplasty patella Implants: None Specimens removed/disposition: None Pathology: None Surgeon: Ginna Bernardo MD Senior Mechanical Technician: None Anesthesia: General (Per LMA, ASA 2) Estimated blood loss (mL): 2 Tourniquet time (min): 45 (At 250 mmHg) IV fluids (mL): 800 Urine output (mL): 0 (No Bautista) Complications: None Findings: Synovitis with inner rim tearing of the lateral meniscus consistent with degenerative tear. Irregularity and tearing of the anterior horn of the medial meniscus as well as mild chondromalacia of the patella Condition: stable Disposition: PACU Brief History: This 29-year-old woman presented to the clinic with complaints of severe left knee pain. The patient had undergone physical therapy as well as medical therapies without benefit to her knee symptoms. MRI demonstrated lateral subluxation of the patella with chondromalacia. Medial and lateral retinaculum are intact. There were no acute appearing meniscus tears. Patient signed consents in the office and questions were answered there. She was seen again the day of surgery, and further opportunity was given to answer questions. Procedure: Patient was brought to the operating theater and after undergoing adequate general anesthesia per LMA, ASA 2, the patient's left lower extremity was prepped and draped in usual fashion utilizing DuraPrep. A tourniquet was placed high on the leg prior to prepping and draping. The tourniquet was elevated prior to commencement of the surgical procedure to 250 mmHg. Total tourniquet time was 45 minutes. Elevation followed prepping and exsanguination. Prior to commencement of the surgical procedure, a surgical pause was performed. At the time of the surgical pause, we identified the site and side of surgery. We also confirmed the patient's identity and appropriate and timely administration of preoperative antibiotics, clindamycin 600 mg. Preoperative surgical markings were also visualized at this time. Standard arthroscopic portals were utilized including superolateral, inferomedial, and inferolateral portals. The examination commenced in the suprapatellar pouch area where the patient was noted to have chondromalacia of the significant degree on the undersurface of the patella. The arthroscope was then passed in the medial compartment where there was noted to be inner rim tearing of the medial meniscus in the midportion. The arthroscope was then passed across the notch area where anterior cruciate ligament was visualized and found to be intact. The scope was passed into the lateral compartment with the knee in a [id number] position. Lateral meniscus was noted to have anterior horn tearing and synovitis in this area. This was addressed with a combination of the intra-articular shaver and heat wand. Once lateral meniscus had been thus prepared it was palpated and found to be intact and not displaceable into the knee joint. Scope was then returned to the medial compartment where the inner rim of the meniscus was addressed with a combination of the intra- articular shaver and heat wand. The meniscus was palpated and found to be not displaceable into the knee joint. The arthroscope was then returned to the patellofemoral joint where a chondroplasty was performed of the undersurface of the patella. This chondroplasty involved use of the intra-articular shaver as well as the heat wand. Once the patella had been addressed, the scope was passed back through the knee compartments to evaluate for other abnormalities. Finding none, attention was directed to closure. The knee was copiously irrigated and suctioned dry. Following this, each portal was closed with a simple suture followed by Dermabond, Steri-Strip, and OpSite. Additionally, the knee was injected with 20 mL of half percent ropivacaine and 8 mg of morphine. Additional 10 mL of ropivacaine was placed about the portals. Sterile dressing was placed consisting of the OpSite followed by an Brandyn wrap. Patient was returned to Recovery Room in satisfactory condition where she will be discharged home to follow-up with me in the office as scheduled. There were no complications and no specimens. Related Problem List Diagnoses (1) Chondromalacia of left patella: (2) Patellofemoral arthritis of left knee: (3) Tear of medial meniscus of left knee: (4) Lateral meniscal tear:
--- NOTE | 2024-11-04 14:00 | ANE.PACU2 ---
Inpatient post-anesthesia follow up: Airway intact: Yes Vital signs: Temperature 97.8 F Pulse Rate 82 Respiratory Rate 18 Blood Pressure 126/88 Pulse Oximetry 93 Oxygen Delivery Me thod Room Air Oxygen Flow Rate 8 Fraction of Inspir ed Oxygen Hydration adequate: Yes Nausea and vomiting: No Pain level: 1 Mental status: Baseline
== END 2024-11-04 14:00 | disposition home or self-care (01) ==
PROVIDERS: Student in an Organized Health Care Education/Training Program; PCP Family Medicine; Visit Provider Specialist
PROC: (CPT 29870; principal; 2024-11-04 11:25)
PROC: (CPT 29880; 2024-11-04 11:25)
PROC: (CPT 29882; 2024-11-04 11:25)
DX: M22.42 Chondromalacia patellae, left knee (principal); M23.242 Derangement of anterior horn of lateral meniscus due to old tear or injury, left knee; M23.212 Derangement of anterior horn of medial meniscus due to old tear or injury, left knee; M65.962 Unspecified synovitis and tenosynovitis, left lower leg; M17.12 Unilateral primary osteoarthritis, left knee; Z87.891 Personal history of nicotine dependence; Z79.899 Other long term (current) drug therapy; Z88.0 Allergy status to penicillin; Z91.040 Latex allergy status
CPT/HCPCS: 29880; 81025; J0131; J1100; J2250; J2270; J2405; J2704; J2795; J3010; J3490; J7030; J9999

== ENCOUNTER → 2025-03-04 17:57 | Outpatient (BNVA) | payer MEDICAID, SELFPAY | PROVIDERS: PCP Family Medicine; Visit Provider Nurse Practitioner | DX: N30.01 Acute cystitis with hematuria (principal); R39.9 Unspecified symptoms and signs involving the genitourinary system | CPT/HCPCS: 81000; 87086 ==

== ENCOUNTER → 2025-06-22 14:12 | Outpatient (BNVA) | payer MEDICAID, SELFPAY | PROVIDERS: PCP Family Medicine; Visit Provider Emergency Medicine | DX: J02.9 Acute pharyngitis, unspecified (principal) | CPT/HCPCS: 87880 ==